=== PATIENT | male | born 1980 | race African-American/Black ===

== ENCOUNTER 2018-02-23 13:15 | Inpatient (IN) | payer BC ==
[2018-02-23 13:45] LABS: Hemoglobin 11.6 g/dL (14.0-18.0); INR-International Normal Ratio 1.2; Mean Corpuscular HGB CONC 32.3 g/dL (32.0-36.0); Mean Corpuscular Hemoglobin 28.8 pg (27.0-31.0); Mean Corpuscular Volume 89.1 fL (78.0-98.0); PTT 31.1 SEC (22.9-36.1); Platelet Count 214 thou/uL (130-400); Prothrombin Time 15.1 SEC (12.0-14.7); RBC Distribution Width 12.4 % (11.5-14.5); Red Blood Cell (RBC) Count 4.02 mill/uL (4.70-6.10)
[2018-02-23] MEDS ORDERED: DOPamine 400 MG/D5W 250 ML 250 ML ONE (13:47)
[2018-02-23] MEDS ORDERED: Hydrocortisone Sod Succ/PF 100 mg/2 ml Vial ONE (13:50)
[2018-02-23 13:51] LABS: ALT (SGPT) 30 U/L (8-55); AST (SGOT) 26 U/L (5-34); Albumin 3.7 g/dL (3.5-5.0); Alkaline Phosphatase 45 U/L (40-150); Anion Gap 28 mmol/L (10-20); BUN (Urea Nitrogen) 13 mg/dL (8.9-20.6); Bilirubin, Total 0.4 mg/dL (0.2-1.2); Calc. Creatinine Clearance 0 mL/min (70-130); Calcium 8.9 mg/dL (7.8-10.44); Carbon Dioxide 23 mmol/L (22-29); Chloride 104 mmol/L (98-107); Estimated GFR-MDRD 74; Globulin 2.3 g/dL (2.4-3.5); Glucose 353 mg/dL (70-105); Potassium 5.6 mmol/L (3.5-5.1); Sodium 149 mmol/L (136-145)
[2018-02-23 13:53] LABS: Base Excess-Venous -1.3 mmol/L (0 (+/- 2.5)); Bicarbonate (HCO3v) 30.2 mmol/L (1.0-85.0); CO2 Tension (PvCO2) 93.7 mmHg (41.0-51.0); Calcium, Ionized 1.05 mmol/L (1.12-1.32); Hemoglobin - Calc 11.9 g/dL (12.0-18.0); Lactate 11.18 mmol/L (0.50-2.20); O2 Tension (PvO2) 22.9 mmHg (35.0-45.0); Potassium 5.3 mmol/L (3.4-4.7); T. Carbon Dioxide 33.1 mmol/L (1.0-85.0); pH (Venous) 7.116 (7.35-7.45); vO2 Saturation-calc 22.8 % (94-98)
[2018-02-23] MEDS ORDERED: CEFAZOLIN 1 GM VIAL ONE (13:57)
[2018-02-23 14:05] LABS: Lymphocytes 68 % (21-51); MDiff Complete? YES; Monocytes 4 % (0-10); Neutrophil 28 % (42-75); Nucleated RBC 5 % (0); PLT Morphology Comment Appears Adequate
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
[2018-02-23 14:28] LABS: Base Excess-Venous -5.5 mmol/L (0 (+/- 2.5)); Bicarbonate (HCO3v) 22.7 mmol/L (1.0-85.0); CO2 Tension (PvCO2) 55.5 mmHg (41.0-51.0); Calcium, Ionized 1.33 mmol/L (1.12-1.32); Hemoglobin - Calc 11.7 g/dL (12.0-18.0); Lactate 11.42 mmol/L (0.50-2.20); O2 Tension (PvO2) 84.5 mmHg (35.0-45.0); Potassium 3.8 mmol/L (3.4-4.7); T. Carbon Dioxide 24.4 mmol/L (1.0-85.0); pH (Venous) 7.219 (7.35-7.45); vO2 Saturation-calc 93.7 % (94-98)
[2018-02-23 14:30] LABS: Actual Bicarbonate (HCO3a) 20.4 mEq/L (22-28); Base Excess (BEa) -9.6 mEq/L (-2.0 to +3.0); CO2 Tension 68.5 mmHg (35.0-45.0); Hematocrit-ABG 31.1 % (42.0-52.0); Hemoglobin (Hb) 9.8 g/dL (14.0-18.0); pH, Arterial 7.09 (7.35-7.45)
[2018-02-23 14:31] LABS: ALV-art Gradient 146.375 (0-20); Analyzer IN Cardio ER; Calcium, Ionized 1.7 mmol/L (1.12-1.30); Puncture Site RFA
[2018-02-23 14:34] LABS: Actual Bicarbonate (HCO3a) 21.4 mEq/L (22-28); Base Excess (BEa) -4.7 mEq/L (-2.0 to +3.0); CO2 Tension 43.5 mmHg (35.0-45.0); O2 Tension (PaO2) 364.6 mmHg (80.0-100.0); pH, Arterial 7.31 (7.35-7.45)
[2018-02-23 14:35] LABS: ALV-art Gradient 289.025 (0-20); Analyzer IN Cardio ER; Calcium, Ionized 1.3 mmol/L (1.12-1.30); Hemoglobin (Hb) 12.4 g/dL (14.0-18.0); Puncture Site ALINE
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
[2018-02-23] MEDS ORDERED: Calcium Chloride 1 GM/10 ML Abboject SYRINGE ONE (15:32)
[2018-02-23] MEDS ORDERED: Atropine Sulfate 1 mg/10 ml Syringe ONE (15:32)
[2018-02-23] MEDS ORDERED: Sodium Bicarb 50 MEQ/50 ML Abboject 8.4% SYRINGE ONE (15:32)
[2018-02-23] MEDS ORDERED: EPINEPHrine 1 MG/10 ML Abboject SYRINGE ONE (15:32)
[2018-02-23] MEDS ORDERED: Dextrose 5% in Water 1,000 ML IV PRN (15:49)
[2018-02-23] MEDS ORDERED: Dextrose 50% Abboject 50 ML SYRINGE SLOW IVP PRN (15:49)
[2018-02-23] MEDS ORDERED: Insulin Regular 300 UNITS/3 ML VIAL SC PRN (15:49)
[2018-02-23] MEDS: Sodium Chloride 0.9% 1,000 ML IV SCH ×2 (16:00→23:11)
[2018-02-23 16:11] VITALS: BMI 28.2
[2018-02-23] MEDS ORDERED: Fentanyl 100 MCG/2 ML VIAL ONE (16:13)
[2018-02-23] MEDS ORDERED: Esmolol 2,500 MG/250 ML 250 ML IVPB SCH (16:30)
[2018-02-23 16:50] LABS: Sodium 149 mmol/L (136-145)
[2018-02-23 17:26] LABS: Lactic Acid 2.7 mmol/L (0.5-2.2)
[2018-02-23] MEDS: Acetaminophen 1,000 MG in Premix Bag 1 BAG IVPB SCH ×2 (17:58→23:02)
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
[2018-02-23] MEDS ORDERED: Sodium Bicarb 5 MEQ/10 ML Abboject 4.2% SYRINGE ONE (20:00)
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
[2018-02-23 20:30] LABS: Sodium 148 mmol/L (136-145)
[2018-02-24 00:50] LABS: Sodium 153 mmol/L (136-145)
[2018-02-24] MEDS: Acetaminophen 1,000 MG in Premix Bag 1 BAG IVPB SCH (05:04)
[2018-02-24 05:16] LABS: ALT (SGPT) 67 U/L (8-55); AST (SGOT) 73 U/L (5-34); Albumin 4.3 g/dL (3.5-5.0); Alkaline Phosphatase 43 U/L (40-150); Anion Gap 12 mmol/L (10-20); BUN (Urea Nitrogen) 15 mg/dL (8.9-20.6); Bilirubin, Total 1.1 mg/dL (0.2-1.2); Calc. Creatinine Clearance 90 mL/min (70-130); Calcium 10.6 mg/dL (7.8-10.44); Carbon Dioxide 23 mmol/L (22-29); Chloride 121 mmol/L (98-107); Estimated GFR-MDRD 70; Globulin 2.5 g/dL (2.4-3.5); Glucose 87 mg/dL (70-105); Potassium 3.2 mmol/L (3.5-5.1); Protein, Total 6.8 g/dL (6.0-8.3); Sodium 153 mmol/L (136-145)
[2018-02-24 06:56] LABS: ALV-art Gradient 104.775 (0-20); Actual Bicarbonate (HCO3a) 20.7 mEq/L (22-28); Base Excess (BEa) 0.4 mEq/L (-2.0 to +3.0); CO2 Tension 23.3 mmHg (35.0-45.0); Calcium, Ionized 1.3 mmol/L (1.12-1.30); Hemoglobin (Hb) 13.5 g/dL (14.0-18.0); O2 Tension (PaO2) 151.3 mmHg (80.0-100.0); pH, Arterial 7.57 (7.35-7.45)
[2018-02-24 07:06] LABS: Hemoglobin 13.2 g/dL (14.0-18.0); Mean Corpuscular HGB CONC 33.2 g/dL (32.0-36.0); Mean Corpuscular Hemoglobin 28.6 pg (27.0-31.0); Mean Corpuscular Volume 86.3 fL (78.0-98.0); Mean Platelet Volume 7.6 fL (7.4-10.4); Platelet Count 194 thou/uL (130-400); RBC Distribution Width 12.3 % (11.5-14.5); White Blood Cell (WBC) Count 9.8 thou/uL (4.8-10.8)
[2018-02-24] MEDS: Sodium Chloride 0.9% 1,000 ML IV SCH (07:12)
[2018-02-24 07:40] LABS: Actual Bicarbonate (HCO3a) 21.1 mEq/L (22-28); Base Excess (BEa) -1.2 mEq/L (-2.0 to +3.0); CO2 Tension 28.7 mmHg (35.0-45.0); Hemoglobin (Hb) 13.5 g/dL (14.0-18.0); O2 Tension (PaO2) 166.8 mmHg (80.0-100.0); pH, Arterial 7.48 (7.35-7.45)
[2018-02-24 07:41] LABS: ALV-art Gradient 82.525 (0-20); Calcium, Ionized 1.3 mmol/L (1.12-1.30); Puncture Site LINE
[2018-02-24] MEDS ORDERED: D5 1/2 NS w/20 mEq KCL 1,000 ML IV SCH (08:00)
[2018-02-24 08:06] LABS: Actual Bicarbonate (HCO3a) 21.5 mEq/L (22-28); Base Excess (BEa) -2.4 mEq/L (-2.0 to +3.0); CO2 Tension 34.3 mmHg (35.0-45.0); pH, Arterial 7.41 (7.35-7.45)
[2018-02-24 08:07] LABS: ALV-art Gradient 92.975 (0-20); Calcium, Ionized 1.3 mmol/L (1.12-1.30); Puncture Site LINE
[2018-02-24 08:23] LABS: pH, Arterial 7.36 (7.35-7.45)
[2018-02-24 08:24] LABS: Actual Bicarbonate (HCO3a) 22.4 mEq/L (22-28); Base Excess (BEa) -2.8 mEq/L (-2.0 to +3.0); CO2 Tension 40.4 mmHg (35.0-45.0); Hemoglobin (Hb) 12.6 g/dL (14.0-18.0); O2 Tension (PaO2) 177.4 mmHg (80.0-100.0)
[2018-02-24 08:25] LABS: Calcium, Ionized 1.3 mmol/L (1.12-1.30); Puncture Site A-LINE
[2018-02-24] MEDS: Dextrose 5 %-0.45 % NaCl 1,000 ML IV SCH ×2 (08:29→10:01)
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
[2018-02-24] MEDS ORDERED: Pantoprazole 40 MG VIAL IVP SCH (09:00)
[2018-02-24 09:20] LABS: Phosphorus Less than 1.0 mg/dL (2.3-4.7)
[2018-02-24 09:52] LABS: Base Excess (BEa) -5.2 mEq/L (-2.0 to +3.0); O2 Tension (PaO2) 144.5 mmHg (80.0-100.0); pH, Arterial 7.22 (7.35-7.45)
[2018-02-24 09:53] LABS: Calcium, Ionized 1.3 mmol/L (1.12-1.30); Hemoglobin (Hb) 12.3 g/dL (14.0-18.0)
[2018-02-24 09:54] LABS: Puncture Site LINE
[2018-02-24] MEDS ORDERED: Potassium Phosphate 30 MMOL, Magnesium Sulfate 4 GM in Sodium Chloride 0.9% 250 ML 250 ML IVPB SCH (10:00)
[2018-02-24] MEDS ORDERED: Magnesium 2 GM/NS 0.9% 100 ML 4 GM in Premix Bag 1 BAG IVPB SCH (10:00)
[2018-02-24] MEDS ORDERED: Potassium Phosphate 30 MMOL in Sodium Chloride 0.9% 500 ML IVPB SCH (10:00)
[2018-02-24 10:13] VITALS: TEMP 97.7
[2018-02-24 10:13] LABS: Band 11 % (5-11); Lymphocytes 27 % (21-51); MDiff Complete? YES; Monocytes 1 % (0-10); Neutrophil 59 % (42-75); RBC Morphology Normal; Reactive Lymphocytes 2 % (0-10)
[2018-02-24 10:21] LABS: Actual Bicarbonate (HCO3a) 24.2 mEq/L (22-28); Base Excess (BEa) -3.3 mEq/L (-2.0 to +3.0); CO2 Tension 53.8 mmHg (35.0-45.0); O2 Tension (PaO2) 190.2 mmHg (80.0-100.0); pH, Arterial 7.27 (7.35-7.45)
[2018-02-24 10:22] LABS: Calcium, Ionized 1.4 mmol/L (1.12-1.30); Hemoglobin (Hb) 12.7 g/dL (14.0-18.0); Puncture Site LINE
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
--- NOTE | 2018-02-24 11:50 | RAD ---
AP VIEW CHEST: INDICATIONS: Low O2 saturation. COMPARISON: Prior chest radiograph dated 02/23/2018. FINDINGS: Since the comparison examination, the ET tube tip has been mildly advanced. The tip still resides 3 cm above the level of the tameka. The gastric catheter is projecting below the left hemidiaphragm an d beyond the field of view. The bilateral lungs are clear. No pneumothorax is evident. No acute os seous abnormality is evident. IMPRESSION: No acute cardiopulmonary abnormality. POS: [facility]
[2018-02-24 13:24] VITALS: BP 111/65
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
[2018-02-26 11:05] LABS: pH, Arterial 7.46 (7.35-7.45)
[2018-02-26 11:06] LABS: Actual Bicarbonate (HCO3a) 20.6 mEq/L (22-28); Base Excess (BEa) -2.6 mEq/L (-2.0 to +3.0); CO2 Tension 29.7 mmHg (35.0-45.0); Calcium, Ionized 1.1 mmol/L (1.12-1.30); O2 Tension (PaO2) 412.2 mmHg (80.0-100.0)
[2018-02-26 11:07] LABS: ALV-art Gradient 263.675 (0-20); Puncture Site ALINE
== END 2018-02-24 10:07 | disposition expired | DRG 82 ==
LOC: ERS 13:15 → CCU 15:49
PROVIDERS: ADMIT Surgery; ATTEND Surgery
PROC: 0BH17EZ Insertion of Endotracheal Airway into Trachea, Via Natural or Artificial Opening (ICD-10-PCS; principal; 2018-02-23)
PROC: 5A1935Z Respiratory Ventilation, Less than 24 Consecutive Hours (ICD-10-PCS; 2018-02-23)
PROC: 30233K1 Transfusion of Nonautologous Frozen Plasma into Peripheral Vein, Percutaneous Approach (ICD-10-PCS; 2018-02-23)
PROC: 30233N1 Transfusion of Nonautologous Red Blood Cells into Peripheral Vein, Percutaneous Approach (ICD-10-PCS; 2018-02-23)
PROC: 30233R1 Transfusion of Nonautologous Platelets into Peripheral Vein, Percutaneous Approach (ICD-10-PCS; 2018-02-23)
PROC: 06HY33Z Insertion of Infusion Device into Lower Vein, Percutaneous Approach (ICD-10-PCS; 2018-02-23)
PROC: 04HY32Z Insertion of Monitoring Device into Lower Artery, Percutaneous Approach (ICD-10-PCS; 2018-02-23)
PROC: 4A133B1 Monitoring of Arterial Pressure, Peripheral, Percutaneous Approach (ICD-10-PCS; 2018-02-23)
PROC: 4A133J1 Monitoring of Arterial Pulse, Peripheral, Percutaneous Approach (ICD-10-PCS; 2018-02-23)
DX: J96.00 Acute respiratory failure, unspecified whether with hypoxia or hypercapnia; E87.2 Acidosis; E23.2 Diabetes insipidus; I46.9 Cardiac arrest, cause unspecified; S01.03XA Puncture wound without foreign body of scalp, initial encounter; R40.2432 Glasgow coma scale score 3-8, at arrival to emergency department; W34.00XA Accidental discharge from unspecified firearms or gun, initial encounter; Y93.9 Activity, unspecified; Y92.9 Unspecified place or not applicable; Y99.9 Unspecified external cause status; R40.20 Unspecified coma; E83.51 Hypocalcemia; S02.19XB Other fracture of base of skull, initial encounter for open fracture
CPT/HCPCS: 36415; 36430; 70450; 71045; 72125; 78610; 80053; 82150; 82330; 82803; 82805; 83605; 83735; 83930; 84100; 85025; 85610; 85730; 86850; 86900; 86901; 94002; 94003; 94640; A9521; C9113; G0390; J0131; J0171; J0461; J0690; J1265; J1720; J1815; J2597; J3010; J3475; J7050; J7070; J7620; P9016; P9035; P9059

== ENCOUNTER 2018-02-24 10:07 | Day surgery (SDC) | payer OTHER ==
[2018-02-24] MEDS ORDERED: Albuterol Sulfate 2.5 mg/3 ml Neb NEB PRN (16:15)
[2018-02-24] MEDS ORDERED: Levothyroxine Sodium 400 MCG in Sodium Chloride 0.9% 100 ML IVPB SCH (16:15)
[2018-02-24] MEDS ORDERED: Dextrose 50% Abboject 50 ML SYRINGE SLOW IVP SCH (16:15)
[2018-02-24] MEDS ORDERED: methylPREDNISolone Sod Succ 2 GM in Sodium Chloride 0.9% 100 ML IVPB SCH (16:15)
[2018-02-24] MEDS ORDERED: Levothyroxine 100 MCG SDV SLOW IVP SCH (16:30)
--- NOTE | 2018-02-24 16:43 | RAD ---
AP CHEST: History: Intubated patient. Date: 02-24-18 Comparison: 02-23-18 FINDINGS: AP chest demonstrates a nasogastric and endotracheal tube to be in place. There is an area of density lateral to the right heart border, possibly representing area of right middle lobe collapse. The lef t lower lobe is unremarkable. There may be an area of elevation of the right hemidiaphragm. IMPRESSION: Possible right middle lobe collapse and elevated right hemidiaphragm. POS: [facility]
[2018-02-24] MEDS ORDERED: D5 1/2 NS w/20 mEq KCL 1,000 ML IV SCH (17:15)
[2018-02-24 17:19] LABS: Bilirubin Negative (Negative); Blood, Urine Negative (Negative); Clarity CLEAR (Clear); Glucose, Urine (Dipstick) Negative (Negative); Leukocyte Negative (Negative); Nitrite Negative (Negative); Protein, Urine (Dipstick) Negative (Neg-Trace); Urobilinogen 0.2 mg/dL (0.2-1.0)
[2018-02-24 17:24] LABS: Specific Gravity, Urine 1.003 (1.002-1.036)
[2018-02-24] MEDS: Phytonadione 10 MG in Sodium Chloride 0.9% 50 ML IVPB SCH ×2 (17:25→19:43)
[2018-02-24 17:33] LABS: Bacteria/HPF None Seen HPF (None Seen); Hyaline Casts/LPF NONE SEEN LPF (0-3 Hyaline); RBC/HPF 0-3 HPF (0-3); Squamous Epithelial 0-3 HPF (0-3); WBC/HPF 0-3 HPF (0-3)
[2018-02-24 17:40] LABS: #Eosinphils 0.1 thou/uL (0.0-0.7); #Lymphocytes 2.4 thou/uL (1.20-3.40); #Monocytes 0.4 thou/uL (0.11-0.59); #Neutrophils 5.3 thou/uL (1.40-6.50); %Basophils 0.4 % (0.0-1.0); %Eosinophils 1.1 % (0.0-10.0); %Lymphocytes 28.7 % (21.0-51.0); %Neutrophils 64.8 % (42.0-75.0); Hemoglobin 12.8 g/dL (14.0-18.0); Mean Corpuscular HGB CONC 33.9 g/dL (32.0-36.0); Mean Corpuscular Hemoglobin 29.8 pg (27.0-31.0); Mean Platelet Volume 6.8 fL (7.4-10.4); Platelet Count 154 thou/uL (130-400); RBC Distribution Width 12.7 % (11.5-14.5); Red Blood Cell (RBC) Count 4.27 mill/uL (4.70-6.10); White Blood Cell (WBC) Count 8.2 thou/uL (4.8-10.8)
[2018-02-24 17:45] LABS: Actual Bicarbonate (HCO3a) 24.6 mEq/L (22-28); Base Excess (BEa) -1.8 mEq/L (-2.0 to +3.0); CO2 Tension 48.3 mmHg (35.0-45.0); Hemoglobin (Hb) 12.9 g/dL (14.0-18.0); O2 Tension (PaO2) 410.3 mmHg (80.0-100.0); pH, Arterial 7.32 (7.35-7.45)
[2018-02-24] MEDS ORDERED: Insulin Regular 300 UNITS/3 ML VIAL IVP SCH (17:45)
[2018-02-24 17:46] LABS: Calcium, Ionized 1.3 mmol/L (1.12-1.30); Puncture Site LINE
[2018-02-24 17:47] LABS: ALV-art Gradient 237.325 (0-20)
[2018-02-24 17:47] LABS: INR-International Normal Ratio 1.2; PTT 27.7 SEC (22.9-36.1); Prothrombin Time 15.3 SEC (12.0-14.7)
[2018-02-24] MEDS ORDERED: Norepinephrine 8 MG/0.9% NS 250 ML IVPB SCH (18:15)
[2018-02-24 18:20] LABS: Hemoglobin A1c 5.4 % (4.0-6.0)
[2018-02-24 18:28] VITALS: BMI 26.4
[2018-02-24] MEDS: Albuterol Sulfate 2.5 mg/3 ml Neb NEB SCH ×2 (18:32→22:25)
[2018-02-24 18:56] LABS: ALT (SGPT) 54 U/L (8-55); AST (SGOT) 50 U/L (5-34); Albumin 3.9 g/dL (3.5-5.0); Alkaline Phosphatase 42 U/L (40-150); Anion Gap 12 mmol/L (10-20); BUN (Urea Nitrogen) 10 mg/dL (8.9-20.6); Bilirubin, Total 0.7 mg/dL (0.2-1.2); Calc. Creatinine Clearance 88 mL/min (70-130); Calcium 9.6 mg/dL (7.8-10.44); Carbon Dioxide 25 mmol/L (22-29); Chloride 124 mmol/L (98-107); Estimated GFR-MDRD 68; Globulin 2.3 g/dL (2.4-3.5); Glucose 124 mg/dL (70-105); Lipase 38 U/L (8-78); Magnesium 3.1 mg/dL (1.6-2.6); Phosphorus 2.3 mg/dL (2.3-4.7); Potassium 3.8 mmol/L (3.5-5.1); Protein, Total 6.2 g/dL (6.0-8.3); Sodium 157 mmol/L (136-145)
[2018-02-24] MEDS: CEFAZOLIN 1 GM in Sodium Chloride 0.9% 100 ML IVPB SCH (19:04)
[2018-02-24] MEDS ORDERED: Dextrose 5% in Water 1,000 ML IV SCH (20:00)
[2018-02-24] MEDS ORDERED: Vasopressin 20 UNIT in Sodium Chloride 0.9% 250 ML 250 ML IV SCH (20:00)
[2018-02-24 22:13] LABS: Actual Bicarbonate (HCO3a) 21.6 mEq/L (22-28); CO2 Tension 33.3 mmHg (35.0-45.0); O2 Tension (PaO2) 173.9 mmHg (80.0-100.0); pH, Arterial 7.43 (7.35-7.45)
[2018-02-24 22:14] LABS: ALV-art Gradient 67.675 (0-20); Calcium, Ionized 1.3 mmol/L (1.12-1.30); Puncture Site LINE
[2018-02-25 00:07] LABS: Actual Bicarbonate (HCO3a) 17.7 mEq/L (22-28); Base Excess (BEa) -5.7 mEq/L (-2.0 to +3.0); CO2 Tension 29.1 mmHg (35.0-45.0); Calcium, Ionized 1.3 mmol/L (1.12-1.30); Hemoglobin (Hb) 12.8 g/dL (14.0-18.0); O2 Tension (PaO2) 200.7 mmHg (80.0-100.0)
[2018-02-25 00:08] LABS: ALV-art Gradient 46.125 (0-20); Puncture Site LINE
[2018-02-25] MEDS: CEFAZOLIN 1 GM in Sodium Chloride 0.9% 100 ML IVPB SCH (00:19)
[2018-02-25 00:32] LABS: #Lymphocytes 0.7 thou/uL (1.20-3.40); #Monocytes 0.3 thou/uL (0.11-0.59); #Neutrophils 8.4 thou/uL (1.40-6.50); %Basophils 0.1 % (0.0-1.0); %Eosinophils 0.1 % (0.0-10.0); %Lymphocytes 7.9 % (21.0-51.0); %Monocytes 2.8 % (0.0-10.0); %Neutrophils 89.1 % (42.0-75.0); Hemoglobin 12.4 g/dL (14.0-18.0); Mean Corpuscular HGB CONC 33.2 g/dL (32.0-36.0); Mean Corpuscular Hemoglobin 29.4 pg (27.0-31.0); Mean Corpuscular Volume 88.4 fL (78.0-98.0); Platelet Count 148 thou/uL (130-400); RBC Distribution Width 12.8 % (11.5-14.5); Red Blood Cell (RBC) Count 4.21 mill/uL (4.70-6.10); White Blood Cell (WBC) Count 9.4 thou/uL (4.8-10.8)
[2018-02-25 00:38] LABS: INR-International Normal Ratio 1.3; PTT 26.5 SEC (22.9-36.1); Prothrombin Time 16.2 SEC (12.0-14.7)
[2018-02-25 00:49] LABS: ALT (SGPT) 48 U/L (8-55); AST (SGOT) 40 U/L (5-34); Albumin 3.8 g/dL (3.5-5.0); Alkaline Phosphatase 40 U/L (40-150); Anion Gap 15 mmol/L (10-20); BUN (Urea Nitrogen) 10 mg/dL (8.9-20.6); Bilirubin, Total 0.7 mg/dL (0.2-1.2); Calc. Creatinine Clearance 80 mL/min (70-130); Calcium 9.6 mg/dL (7.8-10.44); Carbon Dioxide 19 mmol/L (22-29); Chloride 125 mmol/L (98-107); Estimated GFR-MDRD 60; Globulin 2.4 g/dL (2.4-3.5); Glucose 253 mg/dL (70-105); Lipase 24 U/L (8-78); Magnesium 1.9 mg/dL (1.6-2.6); Phosphorus Less than 1.0 mg/dL (2.3-4.7); Potassium 3.4 mmol/L (3.5-5.1); Protein, Total 6.2 g/dL (6.0-8.3); Sodium 156 mmol/L (136-145)
[2018-02-25] MEDS ORDERED: Naloxone HCl 2 mg/2 ml Syringe IV SCH (01:15)
[2018-02-25] MEDS ORDERED: Potassium Chloride 60 MEQ in Sodium Chloride 0.9% 250 ML 250 ML IVPB SCH (01:30)
[2018-02-25] MEDS ORDERED: Potassium Phosphate 45 MMOL in Sodium Chloride 0.9% 250 ML 250 ML IVPB SCH (01:30)
[2018-02-25] MEDS ORDERED: Albuterol Sulfate 2.5 mg/3 ml Neb NEB PRN (02:13)
[2018-02-25] MEDS ORDERED: Vasopressin 20 UNIT in Sodium Chloride 0.9% 250 ML 250 ML IV SCH (02:15)
[2018-02-25] MEDS ORDERED: Norepinephrine 8 MG/0.9% NS 250 ML IVPB SCH (02:15)
[2018-02-25] MEDS: Dextrose 5% in Water 1,000 ML IV SCH ×2 (02:20→07:25)
[2018-02-25] MEDS: Levothyroxine Sodium 400 MCG in Sodium Chloride 0.9% 100 ML IVPB SCH ×2 (02:20→18:35)
[2018-02-25] MEDS: Albuterol Sulfate 2.5 mg/3 ml Neb NEB SCH ×6 (02:31→22:19)
[2018-02-25 04:57] LABS: Bilirubin Negative (Negative); Blood, Urine Negative (Negative); Clarity CLEAR (Clear); Glucose, Urine (Dipstick) >=1000 mg/dL (Negative); Leukocyte Negative (Negative); Nitrite Negative (Negative); Protein, Urine (Dipstick) Negative (Neg-Trace); Urobilinogen 0.2 mg/dL (0.2-1.0)
[2018-02-25 04:59] LABS: Bacteria/HPF None Seen HPF (None Seen); Hyaline Casts/LPF 0-3 HYALINE CAST LPF (0-3 Hyaline); Pathc Cast-AUWi Flag 0.58 (0-2.49); Squamous Epithelial 0-3 HPF (0-3); WBC/HPF 0-3 HPF (0-3)
[2018-02-25 05:05] LABS: Actual Bicarbonate (HCO3a) 18.6 mEq/L (22-28); Base Excess (BEa) -6.8 mEq/L (-2.0 to +3.0); Calcium, Ionized 1.3 mmol/L (1.12-1.30); Hemoglobin (Hb) 12.2 g/dL (14.0-18.0); O2 Tension (PaO2) 190.2 mmHg (80.0-100.0); Puncture Site LINE; pH, Arterial 7.32 (7.35-7.45)
[2018-02-25 06:06] LABS: #Lymphocytes 0.9 thou/uL (1.20-3.40); #Monocytes 0.4 thou/uL (0.11-0.59); #Neutrophils 9.5 thou/uL (1.40-6.50); %Basophils 0.1 % (0.0-1.0); %Eosinophils 0.2 % (0.0-10.0); %Lymphocytes 8.1 % (21.0-51.0); %Monocytes 3.3 % (0.0-10.0); %Neutrophils 88.3 % (42.0-75.0); Hemoglobin 11.6 g/dL (14.0-18.0); Mean Corpuscular HGB CONC 32.7 g/dL (32.0-36.0); Mean Corpuscular Hemoglobin 29.1 pg (27.0-31.0); Platelet Count 133 thou/uL (130-400); RBC Distribution Width 13.1 % (11.5-14.5); Red Blood Cell (RBC) Count 3.99 mill/uL (4.70-6.10); White Blood Cell (WBC) Count 10.8 thou/uL (4.8-10.8)
[2018-02-25 06:24] LABS: INR-International Normal Ratio 1.3; PTT 28.5 SEC (22.9-36.1); Prothrombin Time 16.6 SEC (12.0-14.7)
[2018-02-25 06:31] LABS: ALT (SGPT) 42 U/L (8-55); AST (SGOT) 33 U/L (5-34); Albumin 3.6 g/dL (3.5-5.0); Alkaline Phosphatase 41 U/L (40-150); Anion Gap 14 mmol/L (10-20); BUN (Urea Nitrogen) 10 mg/dL (8.9-20.6); Bilirubin, Total 0.3 mg/dL (0.2-1.2); Calc. Creatinine Clearance 86 mL/min (70-130); Calcium 9.1 mg/dL (7.8-10.44); Carbon Dioxide 20 mmol/L (22-29); Chloride 126 mmol/L (98-107); Estimated GFR-MDRD 66; Globulin 2.4 g/dL (2.4-3.5); Glucose 227 mg/dL (70-105); Lipase 13 U/L (8-78); Magnesium 2.2 mg/dL (1.6-2.6); Phosphorus 2.3 mg/dL (2.3-4.7); Potassium 3.7 mmol/L (3.5-5.1); Sodium 156 mmol/L (136-145)
[2018-02-25] MEDS ORDERED: Dextrose 5% in Water 500 ML IV SCH (06:45)
--- NOTE | 2018-02-25 08:12 | RAD ---
SEMIUPRIGHT PORTABLE CHEST ONE VIEW: HISTORY: A 37-year-old male with respiratory insufficiency. COMPARISON: 02/25/2018 FINDINGS: NG tube and endotracheal tubes are in satisfactory locations. Monitor leads overly the chest. Heart size is within normal limits. IMPRESSION: No acute intrathoracic disease. Stable from prior study. POS: [facility]
--- NOTE | 2018-02-25 08:18 | RAD ---
AP VIEW CHEST: INDICATIONS: Lung evaluation. COMPARISON: Prior exam dated 02/24/2018. IMPRESSION: The patient is intubated with associated gastric catheter placement. The lungs are clear. No pneumo thorax is evident. No acute osseous abnormality is evident. POS: [facility]
[2018-02-25 09:05] LABS: CO2 Tension 38.9 mmHg (35.0-45.0); O2 Tension (PaO2) 449.6 mmHg (80.0-100.0); pH, Arterial 7.31 (7.35-7.45)
[2018-02-25 09:06] LABS: Base Excess (BEa) -6.7 mEq/L (-2.0 to +3.0); Calcium, Ionized 1.2 mmol/L (1.12-1.30); Hemoglobin (Hb) 11.4 g/dL (14.0-18.0); Puncture Site LINE
[2018-02-25 09:07] LABS: ALV-art Gradient 214.775 (0-20)
[2018-02-25 11:31] LABS: Sodium 155 mmol/L (136-145)
[2018-02-25 11:59] LABS: Troponin I 0.019 ng/mL (< 0.028)
[2018-02-25 12:48] LABS: #Lymphocytes 1.3 thou/uL (1.20-3.40); #Monocytes 0.4 thou/uL (0.11-0.59); #Neutrophils 10.1 thou/uL (1.40-6.50); %Eosinophils 0.1 % (0.0-10.0); %Lymphocytes 10.8 % (21.0-51.0); %Monocytes 3.5 % (0.0-10.0); %Neutrophils 85.6 % (42.0-75.0); Hemoglobin 10.6 g/dL (14.0-18.0); Mean Corpuscular HGB CONC 32.3 g/dL (32.0-36.0); Mean Corpuscular Hemoglobin 28.9 pg (27.0-31.0); Mean Corpuscular Volume 89.7 fL (78.0-98.0); Mean Platelet Volume 7.3 fL (7.4-10.4); Platelet Count 119 thou/uL (130-400); Red Blood Cell (RBC) Count 3.66 mill/uL (4.70-6.10); White Blood Cell (WBC) Count 11.4 thou/uL (4.8-10.8)
[2018-02-25 12:50] LABS: INR-International Normal Ratio 1.4; PTT 28.1 SEC (22.9-36.1); Prothrombin Time 17.2 SEC (12.0-14.7)
[2018-02-25] MEDS: Sodium Chloride 0.45% 1,000 ML IV SCH ×2 (13:06→20:43)
[2018-02-25 13:17] LABS: ALT (SGPT) 38 U/L (8-55); AST (SGOT) 27 U/L (5-34); Albumin 3.9 g/dL (3.5-5.0); Alkaline Phosphatase 37 U/L (40-150); Anion Gap 12 mmol/L (10-20); BUN (Urea Nitrogen) 8 mg/dL (8.9-20.6); Bilirubin, Total 0.3 mg/dL (0.2-1.2); Calc. Creatinine Clearance 99 mL/min (70-130); Calcium 9.2 mg/dL (7.8-10.44); Carbon Dioxide 21 mmol/L (22-29); Chloride 127 mmol/L (98-107); Estimated GFR-MDRD 78; Globulin 2.3 g/dL (2.4-3.5); Glucose 177 mg/dL (70-105); Lipase 13 U/L (8-78); Magnesium 1.9 mg/dL (1.6-2.6); Phosphorus 1.4 mg/dL (2.3-4.7); Protein, Total 6.2 g/dL (6.0-8.3); Sodium 157 mmol/L (136-145)
[2018-02-25 14:19] LABS: CO2 Tension 38.5 mmHg (35.0-45.0)
[2018-02-25 14:20] LABS: Actual Bicarbonate (HCO3a) 23.5 mEq/L (22-28); Hemoglobin (Hb) 11.2 g/dL (14.0-18.0); O2 Tension (PaO2) 565.1 mmHg (80.0-100.0)
[2018-02-25 14:21] LABS: ALV-art Gradient 99.775 (0-20); Calcium, Ionized 1.2 mmol/L (1.12-1.30); Puncture Site LINE
--- NOTE | 2018-02-25 15:11 | RAD ---
UPRIGHT CHEST 1 VIEW: HISTORY: A 37-year-old male with a history of respiratory insufficiency. COMPARISON: 02/25/18. FINDINGS: Endotracheal tube and NG tubes remain in place. Monitor leads overlie the chest. No pneumonia, tani a, or other acute process. IMPRESSION: No acute intrathoracic disease. Stable from prior study. POS: [facility]
[2018-02-25] MEDS: CEFAZOLIN 1 GM, Admixture Fee 1 EACH in Sodium Chloride 0.9% 100 ML IVPB SCH ×2 (15:33→23:45)
--- NOTE | 2018-02-25 16:24 | EKG ---
Test Reason : STAT-ORGAN HARVEST Blood Pressure : / mmHG Vent. Rate : 100 BPM Atrial Rate : 100 BPM P-R Int : 118 ms QRS Dur : 086 ms QT Int : 338 ms P-R-T Axes : 070 068 057 degrees QTc Int : 436 ms Poor data quality, interpretation may be adversely affected Normal sinus rhythm Nonspecific T wave abnormality Abnormal ECG Confirmed by ANDREW DAVIS ([id number]) on 02/25/2018 4:24:05 PM Referred By: [place] OF [place]OWN Confirmed By:ANDREW DAVIS
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
[2018-02-25 18:07] LABS: pH, Arterial 7.41 (7.35-7.45)
[2018-02-25 18:08] LABS: Actual Bicarbonate (HCO3a) 19.2 mEq/L (22-28); Base Excess (BEa) -4.6 mEq/L (-2.0 to +3.0); Calcium, Ionized 1.1 mmol/L (1.12-1.30); Hemoglobin (Hb) 10.5 g/dL (14.0-18.0); O2 Tension (PaO2) 529.9 mmHg (80.0-100.0); Puncture Site LINE
[2018-02-25 18:25] LABS: Bilirubin Small (Negative); Blood, Urine Moderate (Negative); Clarity TURBID (Clear); Glucose, Urine (Dipstick) Negative (Negative); Leukocyte Negative (Negative); Nitrite Negative (Negative); Protein, Urine (Dipstick) 100 mg/dL (Neg-Trace); Specific Gravity, Urine 1.025 (1.002-1.036); Urobilinogen 0.2 mg/dL (0.2-1.0)
[2018-02-25 18:27] LABS: Bacteria/HPF None Seen HPF (None Seen); Pathc Cast-AUWi Flag 2.47 (0-2.49)
[2018-02-25 18:37] LABS: Crystals/HPF 4+ URIC ACID HPF (Negative); Hyaline Casts/LPF 0-3 HYALINE CAST LPF (0-3 Hyaline)
[2018-02-25 18:38] LABS: RBC/HPF 0-3 HPF (0-3); Squamous Epithelial 0-3 HPF (0-3)
[2018-02-25 18:50] LABS: #Lymphocytes 1.3 thou/uL (1.20-3.40); #Monocytes 0.6 thou/uL (0.11-0.59); #Neutrophils 11.5 thou/uL (1.40-6.50); %Basophils 0.1 % (0.0-1.0); %Eosinophils 0.1 % (0.0-10.0); %Lymphocytes 9.4 % (21.0-51.0); %Monocytes 4.2 % (0.0-10.0); %Neutrophils 86.2 % (42.0-75.0); Hemoglobin 10.1 g/dL (14.0-18.0); INR-International Normal Ratio 1.4; Mean Corpuscular HGB CONC 34.2 g/dL (32.0-36.0); Mean Corpuscular Hemoglobin 30.2 pg (27.0-31.0); Mean Corpuscular Volume 88.1 fL (78.0-98.0); Mean Platelet Volume 7.6 fL (7.4-10.4); PTT 27.7 SEC (22.9-36.1); Platelet Count 120 thou/uL (130-400); Prothrombin Time 17.4 SEC (12.0-14.7); Red Blood Cell (RBC) Count 3.34 mill/uL (4.70-6.10); White Blood Cell (WBC) Count 13.3 thou/uL (4.8-10.8)
[2018-02-25 19:28] LABS: ALT (SGPT) 33 U/L (8-55); AST (SGOT) 25 U/L (5-34); Albumin 4.1 g/dL (3.5-5.0); Alkaline Phosphatase 38 U/L (40-150); Anion Gap 14 mmol/L (10-20); BUN (Urea Nitrogen) 9 mg/dL (8.9-20.6); Bilirubin, Total 0.4 mg/dL (0.2-1.2); Calc. Creatinine Clearance 103 mL/min (70-130); Carbon Dioxide 22 mmol/L (22-29); Chloride 127 mmol/L (98-107); Estimated GFR-MDRD 82; Globulin 2.3 g/dL (2.4-3.5); Glucose 140 mg/dL (70-105); Lipase 15 U/L (8-78); Magnesium 1.5 mg/dL (1.6-2.6); Phosphorus 4.2 mg/dL (2.3-4.7); Potassium 3.7 mmol/L (3.5-5.1); Protein, Total 6.4 g/dL (6.0-8.3); Sodium 159 mmol/L (136-145)
[2018-02-25] MEDS ORDERED: Esmolol 100 MG/10 ML VIAL IVP SCH (20:45)
[2018-02-25] MEDS: Esmolol 2,500 MG/250 ML 250 ML IVPB SCH ×2 (20:46→23:04)
--- NOTE | 2018-02-25 22:18 | CT ---
CT OF THE CHEST CT OF THE ABDOMEN CT OF THE PELVIS 02/25/18 COMPARISON: None. HISTORY: Organ donor. TECHNIQUE: Serial axial CT imaging at 5 mm intervals from thoracic inlet through pubic symphysis without contras t. Coronal reformatted imaging obtained. FINDINGS: The lack of contrast limits assessment of the viscera, bowel, vascular structures and for lymphadenop athy. Endotracheal tube and nasogastric tube in proper position. Limited assessment for lymphadenopat hy is unremarkable. There is nonspecific mild reticulonodular infiltrate noted within the posterior aspect of the right u pper lobe, the superior segment of the right lower lobe and the inferior posterior aspect of both low er lobes, right greater than left. There is also mild patchy nodular density in the posterior aspect of the lingula. No pneumothorax is noted. There is no pleural, pericardial or mediastinal fluid seen. Review of the osseous structures of the chest demonstrate no acute findings. No free intraperitoneal air or fluid. There is a Jalloh catheter in the urinary bladder. Right femoral arterial and venous vas cular catheters are present. Limited assessment of the liver, gallbladder, spleen, pancreas, adrenal glands, and kidneys is unremarkable. Limited assessment of the bowel demonstrates no evidence for obs truction or inflammatory change. Osseous structures of abdomen/pelvis demonstrate no acute findings. IMPRESSION: Scattered mild areas of reticulonodular infiltrate noted in both lungs, right greater than left. No a cute findings are seen otherwise. POS: [facility]
[2018-02-26 00:01] LABS: Actual Bicarbonate (HCO3a) 20.8 mEq/L (22-28); CO2 Tension 31.3 mmHg (35.0-45.0); O2 Tension (PaO2) 539.6 mmHg (80.0-100.0); pH, Arterial 7.44 (7.35-7.45)
[2018-02-26 00:02] LABS: ALV-art Gradient 129.275 (0-20); Base Excess (BEa) -2.6 mEq/L (-2.0 to +3.0); Calcium, Ionized 1.1 mmol/L (1.12-1.30); Hemoglobin (Hb) 10.3 g/dL (14.0-18.0); Puncture Site LINE
[2018-02-26 01:43] LABS: #Lymphocytes 1.5 thou/uL (1.20-3.40); #Monocytes 0.7 thou/uL (0.11-0.59); #Neutrophils 12.5 thou/uL (1.40-6.50); %Basophils 0.1 % (0.0-1.0); %Eosinophils 0.1 % (0.0-10.0); %Lymphocytes 10.2 % (21.0-51.0); %Monocytes 4.6 % (0.0-10.0); Hemoglobin 9.9 g/dL (14.0-18.0); Mean Corpuscular HGB CONC 33.7 g/dL (32.0-36.0); Mean Corpuscular Hemoglobin 29.7 pg (27.0-31.0); Mean Corpuscular Volume 88.1 fL (78.0-98.0); Mean Platelet Volume 7.4 fL (7.4-10.4); Platelet Count 117 thou/uL (130-400); RBC Distribution Width 12.9 % (11.5-14.5); Red Blood Cell (RBC) Count 3.32 mill/uL (4.70-6.10); White Blood Cell (WBC) Count 14.7 thou/uL (4.8-10.8)
[2018-02-26 01:45] LABS: INR-International Normal Ratio 1.4; PTT 29.3 SEC (22.9-36.1); Prothrombin Time 17.2 SEC (12.0-14.7)
[2018-02-26 01:58] LABS: ALT (SGPT) 31 U/L (8-55); AST (SGOT) 30 U/L (5-34); Albumin 3.8 g/dL (3.5-5.0); Alkaline Phosphatase 40 U/L (40-150); Anion Gap 13 mmol/L (10-20); BUN (Urea Nitrogen) 8 mg/dL (8.9-20.6); Bilirubin, Total 0.4 mg/dL (0.2-1.2); Calc. Creatinine Clearance 118 mL/min (70-130); Calcium 8.7 mg/dL (7.8-10.44); Carbon Dioxide 23 mmol/L (22-29); Chloride 124 mmol/L (98-107); Estimated GFR-MDRD Greater than 90; Globulin 2.4 g/dL (2.4-3.5); Glucose 159 mg/dL (70-105); Lipase 14 U/L (8-78); Magnesium 1.5 mg/dL (1.6-2.6); Phosphorus 3.5 mg/dL (2.3-4.7); Potassium 3.6 mmol/L (3.5-5.1); Protein, Total 6.2 g/dL (6.0-8.3); Sodium 156 mmol/L (136-145)
[2018-02-26 02:02] LABS: Troponin I 0.029 ng/mL (< 0.028)
[2018-02-26] MEDS: Esmolol 2,500 MG/250 ML 250 ML IVPB SCH ×2 (02:12→03:41)
[2018-02-26] MEDS: Albuterol Sulfate 2.5 mg/3 ml Neb NEB SCH ×4 (02:44→15:29)
[2018-02-26 05:35] LABS: Bilirubin Negative (Negative); Blood, Urine Moderate (Negative); Clarity CLEAR (Clear); Glucose, Urine (Dipstick) Negative (Negative); Leukocyte Negative (Negative); Nitrite Negative (Negative); Protein, Urine (Dipstick) Trace mg/dL (Neg-Trace); Specific Gravity, Urine 1.018 (1.002-1.036); Urobilinogen 0.2 mg/dL (0.2-1.0)
[2018-02-26 05:38] LABS: Bacteria/HPF None Seen HPF (None Seen); Hyaline Casts/LPF 0-3 HYALINE CAST LPF (0-3 Hyaline); Pathc Cast-AUWi Flag 0.29 (0-2.49); RBC/HPF 0-3 HPF (0-3); Squamous Epithelial None Seen HPF (0-3); WBC/HPF 0-3 HPF (0-3)
[2018-02-26] MEDS: CEFAZOLIN 1 GM, Admixture Fee 1 EACH in Sodium Chloride 0.9% 100 ML IVPB SCH (06:29)
[2018-02-26 06:42] LABS: INR-International Normal Ratio 1.3; PTT 29.8 SEC (22.9-36.1); Prothrombin Time 16.7 SEC (12.0-14.7)
[2018-02-26 06:47] LABS: #Lymphocytes 1.1 thou/uL (1.20-3.40); #Monocytes 0.7 thou/uL (0.11-0.59); #Neutrophils 13.2 thou/uL (1.40-6.50); %Eosinophils 0.2 % (0.0-10.0); %Lymphocytes 7.2 % (21.0-51.0); %Neutrophils 87.6 % (42.0-75.0); Hemoglobin 9.6 g/dL (14.0-18.0); Mean Corpuscular HGB CONC 31.9 g/dL (32.0-36.0); Mean Corpuscular Hemoglobin 28.3 pg (27.0-31.0); Mean Corpuscular Volume 88.7 fL (78.0-98.0); Mean Platelet Volume 7.6 fL (7.4-10.4); Platelet Count 113 thou/uL (130-400); RBC Distribution Width 12.9 % (11.5-14.5); Red Blood Cell (RBC) Count 3.39 mill/uL (4.70-6.10)
[2018-02-26 06:57] LABS: ALT (SGPT) 28 U/L (8-55); AST (SGOT) 32 U/L (5-34); Albumin 3.8 g/dL (3.5-5.0); Alkaline Phosphatase 44 U/L (40-150); Anion Gap 14 mmol/L (10-20); BUN (Urea Nitrogen) 8 mg/dL (8.9-20.6); Bilirubin, Total 0.4 mg/dL (0.2-1.2); Calc. Creatinine Clearance 116 mL/min (70-130); Calcium 8.5 mg/dL (7.8-10.44); Carbon Dioxide 21 mmol/L (22-29); Chloride 121 mmol/L (98-107); Estimated GFR-MDRD Greater than 90; Globulin 2.3 g/dL (2.4-3.5); Glucose 155 mg/dL (70-105); Lipase 11 U/L (8-78); Magnesium 1.4 mg/dL (1.6-2.6); Phosphorus 3.6 mg/dL (2.3-4.7); Potassium 3.6 mmol/L (3.5-5.1); Protein, Total 6.1 g/dL (6.0-8.3); Sodium 152 mmol/L (136-145)
[2018-02-26 07:29] LABS: Actual Bicarbonate (HCO3a) 19.7 mEq/L (22-28); Base Excess (BEa) -3.3 mEq/L (-2.0 to +3.0); CO2 Tension 28.7 mmHg (35.0-45.0); Hemoglobin (Hb) 10.2 g/dL (14.0-18.0); O2 Tension (PaO2) 166.3 mmHg (80.0-100.0); pH, Arterial 7.46 (7.35-7.45)
[2018-02-26 07:30] LABS: Calcium, Ionized 1.1 mmol/L (1.12-1.30); Puncture Site ALINE
[2018-02-26 07:31] LABS: ALV-art Gradient 83.025 (0-20)
--- NOTE | 2018-02-26 08:00 | RAD ---
CHEST 1 VIEW PORTABLE: HISTORY: A 37-year-old male with a history of STA donor. COMPARISON: 02/26/18. FINDINGS: Rotation to the left. NG tube and endotracheal tubes are in place. Mild bilateral vascular congesti on but stable. No new process. IMPRESSION: Life support tubes in place. Mild vascular congestion. Stable from prior study. No significant new process. POS: [facility]
--- NOTE | 2018-02-26 08:45 | RAD ---
CHEST ONE VIEW: HISTORY: A 37-year-old female with a history of STA donor. FINDINGS: NG and endotracheal tubes remain in place. There is some bilateral vascular congestion, which appear s slightly more prominent than on the prior study. No confluent pneumonia. IMPRESSION: Slightly worsening bilateral vascular congestion. No pneumothorax or other acute process. POS: [facility]
[2018-02-26] MEDS: Sodium Chloride 0.45% 1,000 ML IV SCH (09:59)
[2018-02-26] MEDS: Piperacillin/Tazobactam 3.375 GM, Admixture Fee 1 EACH in Sodium Chloride 0.9% 100 ML IVPB SCH ×2 (11:34→17:13)
--- NOTE | 2018-02-26 12:32 | RAD ---
PORTABLE SUPINE FRONTAL CHEST RADIOGRAPH: 02/26/2018 HISTORY: Organ donor. COMPARISON: Prior study on the same day. FINDINGS: Stable endotracheal tube and nasogastric tube. No lobar consolidation or alveolar edema. IMPRESSION: Stable appearance of the chest. POS: [facility]
[2018-02-26] MEDS ORDERED: Vancomycin HCl 1.25 GM in Sodium Chloride 0.9% 250 ML 250 ML IVPB SCH (13:00)
[2018-02-26 13:18] VITALS: TEMP 96.6
--- NOTE | 2018-02-26 13:29 | EKG ---
Test Reason : Blood Pressure : / mmHG Vent. Rate : 124 BPM Atrial Rate : 130 BPM P-R Int : 172 ms QRS Dur : 084 ms QT Int : 422 ms P-R-T Axes : 054 058 270 degrees QTc Int : 606 ms Sinus tachycardia Abnormal ECG Confirmed by ANDREW DAVIS ([id number]) on 02/26/2018 1:29:37 PM Referred By: Confirmed By:ANDREW DAVIS
--- NOTE | 2018-02-26 13:31 | EKG ---
Test Reason : STAT Blood Pressure : / mmHG Vent. Rate : 111 BPM Atrial Rate : 111 BPM P-R Int : 156 ms QRS Dur : 080 ms QT Int : 332 ms P-R-T Axes : 067 047 -18 degrees QTc Int : 451 ms Sinus tachycardia Nonspecific T wave abnormality Abnormal ECG Confirmed by ANDREW DAVIS ([id number]) on 02/26/2018 1:31:29 PM Referred By: [facility] Confirmed By:ANDREW DAVIS
[2018-02-26 13:59] LABS: Hemoglobin 11.2 g/dL (14.0-18.0); Mean Corpuscular HGB CONC 33.3 g/dL (32.0-36.0); Mean Corpuscular Hemoglobin 29.5 pg (27.0-31.0); Mean Corpuscular Volume 88.5 fL (78.0-98.0); Mean Platelet Volume 7.8 fL (7.4-10.4); Platelet Count 112 thou/uL (130-400); RBC Distribution Width 12.9 % (11.5-14.5); Red Blood Cell (RBC) Count 3.81 mill/uL (4.70-6.10); White Blood Cell (WBC) Count 17.1 thou/uL (4.8-10.8)
[2018-02-26 14:03] LABS: INR-International Normal Ratio 1.3; PTT 28.8 SEC (22.9-36.1); Prothrombin Time 16.3 SEC (12.0-14.7)
[2018-02-26 14:23] LABS: pH, Arterial 7.31 (7.35-7.45)
[2018-02-26 14:25] LABS: CO2 Tension 46.5 mmHg (35.0-45.0); O2 Tension (PaO2) 545.7 mmHg (80.0-100.0)
[2018-02-26 14:26] LABS: ALT (SGPT) 30 U/L (8-55); AST (SGOT) 35 U/L (5-34); Alkaline Phosphatase 55 U/L (40-150); Anion Gap 14 mmol/L (10-20); BUN (Urea Nitrogen) 8 mg/dL (8.9-20.6); Bilirubin, Total 0.5 mg/dL (0.2-1.2); Calc. Creatinine Clearance 133 mL/min (70-130); Calcium 8.9 mg/dL (7.8-10.44); Carbon Dioxide 24 mmol/L (22-29); Chloride 118 mmol/L (98-107); Estimated GFR-MDRD Greater than 90; Globulin 2.6 g/dL (2.4-3.5); Glucose 162 mg/dL (70-105); Lipase 18 U/L (8-78); Magnesium 1.5 mg/dL (1.6-2.6); Phosphorus 4.9 mg/dL (2.3-4.7); Potassium 3.8 mmol/L (3.5-5.1); Protein, Total 6.6 g/dL (6.0-8.3); Sodium 152 mmol/L (136-145)
[2018-02-26 14:27] LABS: Actual Bicarbonate (HCO3a) 22.7 mEq/L (22-28); Base Excess (BEa) -3.7 mEq/L (-2.0 to +3.0)
[2018-02-26 14:28] LABS: Hemoglobin (Hb) 11.8 g/dL (14.0-18.0)
[2018-02-26 14:29] LABS: Band 9 % (5-11); Lymphocytes 3 % (21-51); MDiff Complete? YES; Monocytes 4 % (0-10); Neutrophil 83 % (42-75); Ovalocytes SLIGHT = 2-5 cells (100X) (0-1/hpf); PLT Morphology Comment Appears Decreased; Polychromasia SLIGHT = 2-3 cells (100X) (0-2/hpf); Reactive Lymphocytes 1 % (0-10)
[2018-02-26 14:29] LABS: Calcium, Ionized 1.1 mmol/L (1.12-1.30); Puncture Site ALINE
[2018-02-26 14:30] LABS: ALV-art Gradient 109.175 (0-20)
[2018-02-26 15:36] VITALS: BP 149/90
[2018-02-26 16:45] LABS: #Lymphocytes 1.6 thou/uL (1.20-3.40); #Neutrophils 15.3 thou/uL (1.40-6.50); %Basophils 0.1 % (0.0-1.0); %Eosinophils 0.1 % (0.0-10.0); %Lymphocytes 9.1 % (21.0-51.0); %Monocytes 5.7 % (0.0-10.0); Hemoglobin 11.8 g/dL (14.0-18.0); Mean Corpuscular HGB CONC 33.8 g/dL (32.0-36.0); Mean Corpuscular Hemoglobin 29.9 pg (27.0-31.0); Mean Corpuscular Volume 88.5 fL (78.0-98.0); Mean Platelet Volume 7.6 fL (7.4-10.4); Platelet Count 116 thou/uL (130-400); RBC Distribution Width 12.9 % (11.5-14.5); Red Blood Cell (RBC) Count 3.94 mill/uL (4.70-6.10)
[2018-02-26 16:51] LABS: INR-International Normal Ratio 1.3; PTT 29.1 SEC (22.9-36.1); Prothrombin Time 15.8 SEC (12.0-14.7)
[2018-02-26 16:55] LABS: Actual Bicarbonate (HCO3a) 24.1 mEq/L (22-28); Base Excess (BEa) -1.3 mEq/L (-2.0 to +3.0); CO2 Tension 42.8 mmHg (35.0-45.0); Hemoglobin (Hb) 12.2 g/dL (14.0-18.0); O2 Tension (PaO2) 173.4 mmHg (80.0-100.0); pH, Arterial 7.37 (7.35-7.45)
[2018-02-26 16:56] LABS: Calcium, Ionized 1.1 mmol/L (1.12-1.30); Puncture Site ALINE
[2018-02-26 17:17] LABS: ALT (SGPT) 29 U/L (8-55); AST (SGOT) 37 U/L (5-34); Albumin 4.1 g/dL (3.5-5.0); Alkaline Phosphatase 60 U/L (40-150); Anion Gap 14 mmol/L (10-20); BUN (Urea Nitrogen) 8 mg/dL (8.9-20.6); Bilirubin, Total 0.5 mg/dL (0.2-1.2); Calc. Creatinine Clearance 126 mL/min (70-130); Calcium 8.7 mg/dL (7.8-10.44); Carbon Dioxide 24 mmol/L (22-29); Chloride 117 mmol/L (98-107); Estimated GFR-MDRD Greater than 90; Globulin 2.7 g/dL (2.4-3.5); Glucose 148 mg/dL (70-105); Lipase 17 U/L (8-78); Magnesium 1.6 mg/dL (1.6-2.6); Phosphorus 3.3 mg/dL (2.3-4.7); Potassium 3.4 mmol/L (3.5-5.1); Protein, Total 6.8 g/dL (6.0-8.3); Sodium 152 mmol/L (136-145)
--- NOTE | 2018-02-26 17:47 | RAD ---
AP VIEW CHEST: 02/26/18 HISTORY: Patient scheduled to be an organ donor. AP view chest obtained on 02/26/18. Comparison made to previous exam from earlier in the day on 02/26/18. AP view chest demonstrates the lungs to be well aerated. No evidence of active intrathoracic disease seen. No evidence of effusions, pneumonia or pneumothorax seen. Nasogastric and endotracheal tubes ar e in good position. No significant interval changes noted. IMPRESSION: Stable AP view chest not having changed since the previous comparison radiograph from five hours jeanette ier. POS: [facility]
[2018-02-26 18:42] LABS: Bilirubin Negative (Negative); Blood, Urine Moderate (Negative); Clarity CLEAR (Clear); Glucose, Urine (Dipstick) 100 mg/dL (Negative); Leukocyte Negative (Negative); Nitrite Negative (Negative); Protein, Urine (Dipstick) 30 mg/dL (Neg-Trace); Specific Gravity, Urine 1.023 (1.002-1.036); Urobilinogen 0.2 mg/dL (0.2-1.0); pH, Urine 6.5 (5.0-9.0)
[2018-02-26 18:50] LABS: Bacteria/HPF None Seen HPF (None Seen); Hyaline Casts/LPF 4-6 HYALINE CAST LPF (0-3 Hyaline); Pathc Cast-AUWi Flag 0.72 (0-2.49); RBC/HPF 0-3 HPF (0-3); Squamous Epithelial 0-3 HPF (0-3); WBC/HPF None Seen HPF (0-3)
== END 2018-02-26 18:20 | disposition expired ==
LOC: CCU 10:07 → SDC 10:07 → CCU 11:00 → SDC 22:00
PROC: 0TB00ZZ Excision of Right Kidney, Open Approach (ICD-10-PCS; principal; 2018-02-26)
PROC: 0BB Respiratory System, Excision (ICD-10-PCS; principal; 2018-02-26)
PROC: 0TB10ZZ Excision of Left Kidney, Open Approach (ICD-10-PCS; principal; 2018-02-26)
DX: Z52.9 Donor of unspecified organ or tissue (principal)
CPT/HCPCS: 36415; 36416; 36430; 71045; 71250; 74177; 80053; 81001; 82150; 82805; 83036; 83690; 83735; 84100; 84484; 85025; 85610; 85730; 86850; 86900; 86901; 87070; 87205; 93005; 93010; 93306; 94003; 94640; J0690; J1815; J2310; J2543; J2597; J2930; J3370; J3430; J3480; J7050; J7611; P9016; P9045; P9059